=== PATIENT | male | born 1995 | race Caucasian/White ===

== ENCOUNTER 2017-10-27 16:14 | Emergency (ER) | payer SELFPAY ==
[2017-10-27 17:12] VITALS: BP 120/68
--- NOTE | 2017-10-27 19:40 | Emergency Department Report ---
ED Lower Extremity HPI - General Chief Complaint: Extremity Injury, Lower Stated Complaint: STOMACH PAIN Time Seen by Provider: 10/27/17 19:28 Source: patient Mode of arrival: Ambulatory Limitations: No Limitations - History of Present Illness Initial Comments: Patient is a 22-year-old male who presents for left ankle pain 5 days patient states I rolled my ankle, steps there was no fall complains of 45 left lateral ankle pain with minimal swelling patient remains weight-bearing without gait disturbance is mild swelling no ecchymosis no numbness no tingling . Complaint: ankle injury Onset/Timin -: days(s) Injury: Ankle: Left Type of Injury: eversion Place: work, street/outdoors Severity scale (0 -10): 2 Improves With: rest Worsens With: movement, palpation Context: other (twisted left ankle ) Associated Symptoms: swelling, ambulatory. denies: numbness, tingling - Related Data Previous Rx's Medication Instructions Recorded Last Taken Type Ibuprofen [Motrin] 600 mg PO Q8H PRN #20 tablet 09/23/15 Unknown Rx Naproxen [EC-Naprosyn] 500 mg PO BID PRN #30 tablet. 10/27/17 Unknown Rx Allergies Allergy/AdvReac Type Severity Reaction Status Date / Time No Known Allergies Allergy Verified 10/27/17 17:12 ED Review of Systems ROS: Stated complaint: STOMACH PAIN Other details as noted in HPI Constitutional: denies: chills, fever Eyes: denies: eye pain, eye discharge, vision change ENT: denies: ear pain, throat pain Respiratory: denies: cough, shortness of breath, wheezing Cardiovascular: denies: chest pain, palpitations Endocrine: no symptoms reported Gastrointestinal: denies: abdominal pain, nausea, diarrhea Genitourinary: denies: urgency, dysuria Musculoskeletal: myalgia Skin: denies: rash, lesions Neurological: denies: headache, weakness, paresthesias Psychiatric: denies: anxiety, depression Hematological/Lymphatic: denies: easy bleeding, easy bruising ED Past Medical Hx - Past Medical History Previous Medical History?: No - Surgical History Past Surgical History?: No - Social History Smoking Status: Current Every Day Smoker Substance Use Type: Alcohol - Medications Home Medications: Home Medications Medication Instructions Recorded Confirmed Last Taken Type Ibuprofen [Motrin] 600 mg PO Q8H PRN #20 tablet 09/23/15 Unknown Rx Naproxen [EC-Naprosyn] 500 mg PO BID PRN #30 tablet. 10/27/17 Unknown Rx ED Physical Exam - General Limitations: No Limitations General appearance: alert, in no apparent distress - Head Head exam: Present: atraumatic, normocephalic - Eye Eye exam: Present: normal appearance - ENT ENT exam: Present: mucous membranes moist - Neck Neck exam: Present: normal inspection - Respiratory Respiratory exam: Present: normal lung sounds bilaterally. Absent: respiratory distress - Cardiovascular Cardiovascular Exam: Present: regular rate, normal rhythm. Absent: systolic murmur, diastolic murmur, rubs, gallop - GI/Abdominal GI/Abdominal exam: Present: soft, normal bowel sounds - Rectal Rectal exam: Present: deferred - Extremities Exam Extremities exam: Present: full ROM, tenderness (mild left lateral ankle pain with deep palpation no deformity mild swelling ppepb+2 rom intact unrestricted pt is ambulatory with steady gait ), normal capillary refill, joint swelling. Absent: pedal edema, calf tenderness - Expanded Lower Extremity Exam Left Ankle exam: Present: full ROM, tenderness, swelling. Absent: abrasion, laceration, ecchymosis, deformity, crepidus, dislocation, erythema, anterior draw sign Neuro vascular tendon exam: Present: no vascular compromise ED Course Vital Signs 10/27/17 16:50 Temperature 98.2 F Pulse Rate 67 Respiratory 18 Rate Blood Pressure 120/68 O2 Sat by Pulse 100 Oximetry ED Lower Extremity MDM - Medical Decision Making this is ankle strain no deformity no ecchymosis ppepb+2 pt is ambulatory with steady gait rom intact without restriction plan: nsaids rice therapy, follow up with pcp in 2-3 days, pt verbalized agreement and understanding with same. Critical care attestation.: If time is entered above; I have spent that time in minutes in the direct care of this critically ill patient, excluding procedure time. ED Disposition Clinical Impression: Ankle strain Qualifiers: Encounter type: initial encounter Laterality: left Qualified Code(s): S96.912A - Strain of unspecified muscle and tendon at ankle and foot level, left foot, initial encounter Disposition: TO HOME OR SELFCARE Is pt being admited?: No Does the pt Need Aspirin: No Condition: Good Instructions: Ankle Exercises (GEN) Prescriptions: Naproxen [EC-Naprosyn] 500 mg PO BID PRN #30 tablet.dr REYNOSO Reason: Pain , Severe (7-10) Referrals: [facility] [Outside] - 3-5 Days Forms: Work/School Release Form(ED) Time of Disposition: 19:47
== END 2017-10-27 19:52 | disposition home or self-care (01) ==
LOC: ED 16:14
DX: S96.912A Strain of unspecified muscle and tendon at ankle and foot level, left foot, initial encounter (principal); F17.200 Nicotine dependence, unspecified, uncomplicated; X50.0XXA Overexertion from strenuous movement or load, initial encounter; Y93.89 Activity, other specified; Y92.488 Other paved roadways as the place of occurrence of the external cause; Y99.8 Other external cause status
CPT/HCPCS: 99282

== ENCOUNTER 2018-09-28 18:15 | Emergency (ER) | payer OTHER ==
[2018-09-28 19:13] LABS: Hematocrit 45.9 % (35.5-45.6); Hemoglobin 15.8 gm/dl (11.8-15.2); Mean Corpuscular HGB Conc 34 % (32-34); Mean Corpuscular Volume 85 fl (84-94); Platelet Count 228 K/mm3 (140-440); Red Blood Count 5.41 M/mm3 (3.65-5.03); Red Cell Distribution Width 13.8 % (13.2-15.2)
[2018-09-28] MEDS ORDERED: NACL 0.9% 1000 ML 1,000 ML IV ONE ×3 (19:13→20:48)
[2018-09-28 19:31] LABS: Calcium 10.3 mg/dL (8.4-10.2)
--- NOTE | 2018-09-28 19:34 | Emergency Department Report ---
- General Chief complaint: Weakness Stated complaint: FULL BODY CRAMPS Time Seen by Provider: 09/28/18 19:02 Source: patient, EMS Mode of arrival: Ambulatory Limitations: No Limitations - History of Present Illness Initial comments: 23-year-old male thatPast medical history presents to the hospital with generalized muscle cramps after heat exposure. 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 He then slept in his nonworking car overnight and was planning to take the bus back to his home in [place] and then ride his bike home. Upon awaking up morning in his nonworking and air-conditioned car he had generalized body aches a lot for sweating. Patient has been attempting to drink fluids throughout the night including water and Gatorade. He received 1 L of normal saline given by EMS and reports symptoms improving and he wants to eat. Temperatures and humidity are high and in the 90s. - Related Data Previous Rx's Medication Instructions Recorded Last Taken Type Ibuprofen [Motrin] 600 mg PO Q8H PRN #20 tablet 09/23/15 Unknown Rx Naproxen [EC-Naprosyn] 500 mg PO BID PRN #30 tablet. 10/27/17 Unknown Rx Allergies Allergy/AdvReac Type Severity Reaction Status Date / Time No Known Allergies Allergy Verified 09/28/18 18:38 ED Review of Systems ROS: Stated complaint: FULL BODY CRAMPS Other details as noted in HPI Comment: All other systems reviewed and negative ED Past Medical Hx - Past Medical History Previous Medical History?: No - Surgical History Past Surgical History?: No - Social History Smoking Status: Never Smoker Substance Use Type: Marijuana - Medications Home Medications: Home Medications Medication Instructions Recorded Confirmed Last Taken Type Ibuprofen [Motrin] 600 mg PO Q8H PRN #20 tablet 09/23/15 Unknown Rx Naproxen [EC-Naprosyn] 500 mg PO BID PRN #30 tablet. 10/27/17 Unknown Rx ED Physical Exam - General Limitations: No Limitations - Other Other exam information: General: No limitations, patient is alert in no acute distress Head exam: Atraumatic, normocephalic Eyes exam: Normal appearance, pupils equal reactive to light, extraocular movements intact ENT: Moist mucous membrane, normal oropharynx Neck exam: Normal inspection, full range of motion, no meningismus nontender Respiratory exam: Clear to auscultation bilateral, no wheezes, rales, crackles Cardiovascular: Normal rate and rhythm, normal heart sounds Abdomen: Soft, nondistended, and nontender, with normal bowel sounds, no rebound, or guarding Extremity: Full range of motion normal inspection no deformity Back: Normal Inspection, full range of motion, no tenderness Neurologic: Alert, oriented x3, cranial nerves intact, no motor or sensory deficit Psychiatric: normal affect, normal mood Skin: Warm, dry, intact ED Course Vital Signs 09/28/18 09/28/18 09/28/18 18:38 18:55 19:30 Temperature 97.6 F 98.2 F Pulse Rate 78 88 Respiratory 16 18 13 Rate Blood Pressure 122/84 Blood Pressure 120/65 [Left] O2 Sat by Pulse 100 99 Oximetry 09/28/18 09/28/18 09/28/18 20:00 20:30 21:00 Temperature Pulse Rate 70 81 65 Respiratory 17 14 16 Rate Blood Pressure 105/57 101/51 118/75 Blood Pressure [Left] O2 Sat by Pulse 99 99 99 Oximetry 09/28/18 09/28/18 09/29/18 22:00 22:30 00:00 Temperature Pulse Rate 79 82 74 Respiratory 14 15 15 Rate Blood Pressure 117/54 117/54 108/51 Blood Pressure [Left] O2 Sat by Pulse 99 99 98 Oximetry ED Medical Decision Making - Lab Data Result diagrams: 09/28/18 18:58 09/28/18 22:46 Lab Results 09/28/18 09/28/18 09/28/18 Range/Units 18:58 18:58 19:04 WBC 8.7 (4.5-11.0) K/mm3 RBC 5.41 H (3.65-5.03) M/mm3 Hgb 15.8 H (11.8-15.2) gm/dl Hct 45.9 H (35.5-45.6) % MCV 85 (84-94) fl MCH 29 (28-32) pg MCHC 34 (32-34) % RDW 13.8 (13.2-15.2) % Plt Count 228 (140-440) K/mm3 Sodium 135 L (137-145) mmol/L Potassium 3.3 L (3.6-5.0) mmol/L Chloride 96.4 L (98-107) mmol/L Carbon Dioxide 23 (22-30) mmol/L Anion Gap 19 mmol/L BUN 19 (9-20) mg/dL Creatinine 1.6 H (0.8-1.5) mg/dL Estimated GFR 54 ml/min BUN/Creatinine Ratio 12 % Glucose 97 (75-100) mg/dL Calcium 10.3 H (8.4-10.2) mg/dL Magnesium 2.20 (1.7-2.3) mg/dL Total Creatine Kinase 1210 H (55-170) units/L Urine Color (Yellow) Urine Turbidity (Clear) Urine pH (5.0-7.0) Ur Specific [place] (1.003-1.030) Urine Protein (Negative) mg/dL Urine Glucose (UA) (Negative) mg/dL Urine Ketones (Negative) mg/dL Urine Blood (Negative) Urine Nitrite (Negative) Urine Bilirubin (Negative) Urine Urobilinogen (<2.0) mg/dL Ur Leukocyte Esterase (Negative) Urine WBC (Auto) (0.0-6.0) /HPF Urine RBC (Auto) (0.0-6.0) /HPF U Epithel Cells (Auto) (0-13.0) /HPF Hyaline Casts /LPF Granular Casts /LPF Urine Mucus /HPF Urine Opiates Screen Urine Methadone Screen Ur Barbiturates Screen Ur Phencyclidine Scrn Ur Amphetamines Screen U Benzodiazepines Scrn Urine Cocaine Screen U Marijuana (THC) Screen Drugs of Abuse Note 09/28/18 09/28/18 09/28/18 Range/Units 19:25 19:25 22:46 WBC (4.5-11.0) K/mm3 RBC (3.65-5.03) M/mm3 Hgb (11.8-15.2) gm/dl Hct (35.5-45.6) % MCV (84-94) fl MCH (28-32) pg MCHC (32-34) % RDW (13.2-15.2) % Plt Count (140-440) K/mm3 Sodium 138 (137-145) mmol/L Potassium 3.7 (3.6-5.0) mmol/L Chloride 103.5 (98-107) mmol/L Carbon Dioxide 25 (22-30) mmol/L Anion Gap 13 mmol/L BUN 15 (9-20) mg/dL Creatinine 1.2 (0.8-1.5) mg/dL Estimated GFR > 60 ml/min BUN/Creatinine Ratio 13 % Glucose 111 H (75-100) mg/dL Calcium 8.7 D (8.4-10.2) mg/dL Magnesium (1.7-2.3) mg/dL Total Creatine Kinase 1033 H (55-170) units/L Urine Color Yellow (Yellow) Urine Turbidity Slightly-cloudy (Clear) Urine pH 6.0 (5.0-7.0) Ur Specific [place] 1.013 (1.003-1.030) Urine Protein <15 mg/dl (Negative) mg/dL Urine Glucose (UA) Neg (Negative) mg/dL Urine Ketones Neg (Negative) mg/dL Urine Blood Neg (Negative) Urine Nitrite Neg (Negative) Urine Bilirubin Neg (Negative) Urine Urobilinogen < 2.0 (<2.0) mg/dL Ur Leukocyte Esterase Neg (Negative) Urine WBC (Auto) 4.0 (0.0-6.0) /HPF Urine RBC (Auto) 2.0 (0.0-6.0) /HPF U Epithel Cells (Auto) 1.0 (0-13.0) /HPF Hyaline Casts 45 /LPF Granular Casts 14 /LPF Urine Mucus Few /HPF Urine Opiates Screen Presumptive negative Urine Methadone Screen Presumptive negative Ur Barbiturates Screen Presumptive negative Ur Phencyclidine Scrn Presumptive negative Ur Amphetamines Screen Presumptive positive U Benzodiazepines Scrn Presumptive negative Urine Cocaine Screen Presumptive positive U Marijuana (THC) Screen Presumptive positive Drugs of Abuse Note Disclamer - Radiology Data Radiology results: report reviewed - Medical Decision Making Patient has improving CK level and creatinine after 3 L of IV normal saline fluid. Patient informed that his UDS was positive for cocaine, amphetamines, and marijuana. Patient states he bough marijuana from someone yesterday and denies knowingly using cocaine or amphetamines. Patient instructed to take 2 days off of work since he performs heavy lifting and to drink plenty of fluids and to avoid exercise to allow time for his muscle enzymes to come down and to hydrate appropriately. Follow-up primary care doctor recommended. - Differential Diagnosis muscle cramps, electrolyte abnormality, heat exhaustion, rhabdo Critical Care Time: No Critical care attestation.: If time is entered above; I have spent that time in minutes in the direct care of this critically ill patient, excluding procedure time. ED Disposition Clinical Impression: Heat exhaustion, Muscle cramp, Poisoning by methamphetamine, Cocaine poisoning, Marijuana use Disposition: DC- TO HOME OR SELFCARE Is pt being admited?: No Does the pt Need Aspirin: No Condition: Stable Instructions: Amphetamine (By mouth), Heat Exhaustion (ED), Cocaine Abuse (ED), Muscle Cramp (ED) Additional Instructions: Take the medication as prescribed. Follow up with your doctor or the clinic/doctor provided. Return if symptoms worsen as indicated by your discharge instructions Referrals: MARISELA MARIA MD [Primary Care Provider] - 3-5 Days Forms: Work/School Release Form(ED) Time of Disposition: 01:04
[2018-09-28 19:46] LABS: Benzodiazepines Screen,Urine PRESUMPTIVE NEGATIVE; Methadone Screen,Urine PRESUMPTIVE NEGATIVE; Opiate Screen,Urine PRESUMPTIVE NEGATIVE
[2018-09-28 20:01] LABS: Amphetamine Screen,Urine PRESUMPTIVE POSITIVE; Cannabinoid Screen,Urine PRESUMPTIVE POSITIVE; Cocaine Screen,Urine PRESUMPTIVE POSITIVE
[2018-09-28 20:03] LABS: Bilirubin,Urine NEG (Negative); Blood,Urine NEG (Negative); Color,Urine Yellow (Yellow); Granular Casts,Urine 14 /LPF; Hyaline Casts,Urine 45 /LPF; Mucus,Urine FEW /HPF; Protein,Urine <15 mg/dL mg/dL (Negative); Urobilinogen,Urine < 2.0 mg/dL (<2.0)
[2018-09-28] MEDS ORDERED: K-DUR PO ONE (20:48)
[2018-09-28 23:27] LABS: BUN/Creatinine Ratio 13; Blood Urea Nitrogen 15 mg/dL (9-20); Calcium 8.7 mg/dL (8.4-10.2); Hemolysis Index 5
[2018-09-29 00:39] VITALS: BP 108/51
== END 2018-09-29 01:25 | disposition home or self-care (01) ==
LOC: ED 18:15
DX: T40.5X4A Poisoning by cocaine, undetermined, initial encounter (principal); M79.10 Myalgia, unspecified site; F12.10 Cannabis abuse, uncomplicated; X30.XXXA Exposure to excessive natural heat, initial encounter; Y93.89 Activity, other specified; Y92.89 Other specified places as the place of occurrence of the external cause; Y99.8 Other external cause status
CPT/HCPCS: 36415; 80048; 80307; 81001; 82550; 83735; 85027; 96360; 96361; 99283; J7030